=== PATIENT | male | born 1985 | race Caucasian/White ===

== ENCOUNTER 2018-04-24 04:56 | Emergency (ER) | payer OTHER ==
[2018-04-24 06:03] VITALS: BP 130/85
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
[2018-04-24] MEDS ORDERED: MOTRIN PO ONE (10:22)
== END 2018-04-24 11:09 | disposition home or self-care (01) ==
LOC: ED 04:56
DX: M54.5 Low back pain (principal); R51 Headache; M62.830 Muscle spasm of back; R07.81 Pleurodynia; F17.200 Nicotine dependence, unspecified, uncomplicated; V49.49XA Driver injured in collision with other motor vehicles in traffic accident, initial encounter; Y93.89 Activity, other specified; Y92.89 Other specified places as the place of occurrence of the external cause; Y99.8 Other external cause status
CPT/HCPCS: 71110